=== PATIENT | female | born 1990 | race Caucasian/White ===

== ENCOUNTER → 2017-02-05 | Outpatient (CLI) | payer BC ==
--- NOTE | 2017-02-05 16:13 | CR ---
EXAMINATION: Right ankle HISTORY: Fracture COMPARISON: 01/04/2017 TECHNIQUE: 3 views FINDINGS/IMPRESSION: There is a small early well-corticated ossific density along the inferior aspec t of the distal fibular consistent with previous avulsion fracture. There is minimal residual overly ing soft tissue swelling. The remaining osseous structures and joint spaces appear preserved.
== END ==
LOC: MW.CHORTHO 07:49
PROVIDERS: ATTEND Physician Assistant
DX: S82.831A Other fracture of upper and lower end of right fibula, initial encounter for closed fracture (principal)
CPT/HCPCS: 73610-26-RT; 73610-RT

== ENCOUNTER 2019-09-07 06:32 | Day surgery (SDC) | payer BC ==
--- NOTE | 2019-09-07 07:11 | PCM.PREANE ---
Preanesthetic Assessment - Anesthesia/Transfusion/Family Hx Anesthesia History: Prior Anesthesia Reaction Family History of Anesthesia Reaction: No Transfusion History: No Prior Transfusion(s) Intubation History: Unknown - Review of Systems General: No Symptoms Pulmonary: No Symptoms Cardiovascular: No Symptoms Gastrointestinal: No Symptoms Neurological: No Symptoms Other: Reports: None - Physical Assessment Vital Signs: Last Vital Signs Temp 36.4 C 09/07/19 06:50 Pulse 70 09/07/19 06:50 Resp 14 09/07/19 06:50 BP 118/70 09/07/19 06:50 Pulse Ox 99 09/07/19 06:50 Height: 5 ft 6.5 in Weight: 55.338 kg ASA Class: 2 Mental Status: Alert & Oriented x3 Airway Class: Mallampati = 1 Dentition: Reports: Normal Dentition Thyro-Mental Finger Breadths: 3 Mouth Opening Finger Breadths: 3 ROM/Head Extension: Full Lungs: Clear to Auscultation, Normal Respiratory Effort Cardiovascular: Regular Rate, Regular Rhythm - Lab Values: Laboratory Last Values WBC 3.93 K/uL (4.0-11.0) L 09/07/19 06:55 RBC 3.89 M/uL (4.30-5.90) L 09/07/19 06:55 Hgb 12.7 g/dL (12.0-16.0) 09/07/19 06:55 Hct 36.2 % (36.0-46.0) 09/07/19 06:55 MCV 93.1 fL (80.0-98.0) 09/07/19 06:55 MCH 32.6 pg (27.0-32.0) H 09/07/19 06:55 MCHC 35.1 g/dL (31.0-37.0) 09/07/19 06:55 RDW Std Deviation 41.7 fl (28.0-62.0) 09/07/19 06:55 RDW Coeff of Roderick 12 % (11.0-15.0) 09/07/19 06:55 Plt Count 221 K/uL (150-400) 09/07/19 06:55 MPV 10.20 fL (7.40-12.00) 09/07/19 06:55 Neut % (Auto) 47.9 % (48.0-80.0) L 09/07/19 06:55 Lymph % (Auto) 43.5 % (16.0-40.0) H 09/07/19 06:55 Mckean % (Auto) 6.6 % (0.0-15.0) 09/07/19 06:55 Eos % (Auto) 1.5 % (0.0-7.0) 09/07/19 06:55 Baso % (Auto) 0.5 % (0.0-1.5) 09/07/19 06:55 Neut # (Auto) 1.9 K/uL (1.4-5.7) 09/07/19 06:55 Lymph # (Auto) 1.7 K/uL (0.6-2.4) 09/07/19 06:55 Mckean # (Auto) 0.3 K/uL (0.0-0.8) 09/07/19 06:55 Eos # (Auto) 0.1 K/uL (0.0-0.7) 09/07/19 06:55 Baso # (Auto) 0.0 K/uL (0.0-0.1) 09/07/19 06:55 Nucleated RBC % 0.0 /100WBC 09/07/19 06:55 Nucleated RBCs # 0 K/uL 09/07/19 06:55 - Allergies Allergies/Adverse Reactions: Allergies Allergy/AdvReac Type Severity Reaction Status Date / Time oxycodone HCl Allergy Anaphylactic Verified 09/02/19 15:54 [From OxyContin] Shock - Blood Blood Available: No - Anesthesia Plan Pre-Op Medication Ordered: None - Acknowledgements Anesthesia Type Planned: General Anesthesia Pt an Appropriate Candidate for the Planned Anesthesia: Yes Alternatives and Risks of Anesthesia Discussed w Pt/Guardian: Yes Pt/Guardian Understands and Agrees with Anesthesia Plan: Yes PreAnesthesia 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: , Other (See Below) (ovarian cyst) Musculoskeletal History: Reports: Fracture Other Musculoskeletal History: hx of bilateral fx arms and ankle Psychiatric History: Reports: Anxiety - Past Surgical History Head Surgeries/Procedures: Reports: None GI Surgical History: Reports: Appendectomy, Cholecystectomy, Hernia, Inguinal Female Surgical History: Reports: Breast Implant, LEEP Musculoskeletal Surgical History: Reports: Other (See Below) Other Musculoskeletal Surgeries/Procedures:: tendon repair left middle finger - SUBSTANCE USE Smoking Status *Q: Never Smoker Recreational Drug Use History: No - HOME MEDS Home Medications: Home Meds busPIRone HCl [Buspirone HCl] 15 mg PO BID 09/02/19 [History]
[2019-09-07] MEDS ORDERED: Scopolamine 1.5 MG Transdermal Patch TRDERM PRN (07:12)
[2019-09-07] MEDS ORDERED: Propofol 200 MG/20 ML SDV ONE (07:15)
[2019-09-07] MEDS ORDERED: Ondansetron 4 MG/2 ML SDV ONE (07:16)
[2019-09-07] MEDS ORDERED: Midazolam 1 MG/ML 2 ML SDV ONE (07:16)
[2019-09-07] MEDS ORDERED: Rocuronium 100 MG/10 ML Syringe ONE (07:16)
[2019-09-07] MEDS ORDERED: Dexamethasone 4 MG/ML 5 ML MDV ONE (07:16)
[2019-09-07] MEDS ORDERED: fentaNYL 100 MCG/2 ML SDV ONE (07:16)
[2019-09-07] MEDS ORDERED: Ketorolac 30 MG/ML SDV ONE (07:21)
[2019-09-07] MEDS ORDERED: ceFAZolin 1 GM Vial ONE (07:52)
[2019-09-07] MEDS ORDERED: Sodium Chloride 0.9% 20 ML ONE (07:52)
[2019-09-07] MEDS ORDERED: Bupivacaine 0.5% 30 ML SDV ONE (08:09)
[2019-09-07] MEDS ORDERED: Glycopyrrolate 0.2 MG/ML SDV ONE (08:33)
[2019-09-07] MEDS ORDERED: Neostigmine Methylsulfate 1 MG/ML 5 ML Syringe ONE (08:33)
[2019-09-07] MEDS ORDERED: ePHEDrine 50 MG/ML SDV ONE (08:46)
[2019-09-07] MEDS ORDERED: Fluorescein 5 ML Vial ONE (09:02)
[2019-09-07] MEDS ORDERED: Furosemide 40 MG/4 ML VIAL ONE (09:04)
[2019-09-07] MEDS ORDERED: EPINEPHrine 1:10,000 1 MG/10 ML Syringe IVPUSH PRN (09:33)
[2019-09-07] MEDS ORDERED: Naloxone 0.4 MG/ML Syringe IVPUSH PRN (09:33)
[2019-09-07] MEDS ORDERED: 50% Dextrose in Water 50 ML Syringe IVPUSH PRN (09:33)
[2019-09-07] MEDS ORDERED: Atropine 0.1 MG/ML 10 ML Syringe IVPUSH PRN ×2 (09:33)
[2019-09-07] MEDS ORDERED: Albuterol 0.083% 2.5 MG/3 ML Neb Soln NEB PRN (09:33)
[2019-09-07] MEDS ORDERED: diphenhydrAMINE 50 MG/ML SDV ONE (09:36)
[2019-09-07] MEDS ORDERED: Lidocaine 1% 20 ML MDV ONE (09:43)
[2019-09-07] MEDS ORDERED: Ondansetron 4 MG/2 ML SDV IVPUSH PRN (10:06)
[2019-09-07] MEDS ORDERED: Promethazine 25 MG/ML SDV IM PRN (10:06)
[2019-09-07] MEDS ORDERED: Ketorolac 30 MG/ML SDV IVPUSH ONE (10:06)
[2019-09-07] MEDS ORDERED: Morphine 4 MG/ML Syringe IVPUSH PRN (10:06)
[2019-09-07] MEDS ORDERED: Ketorolac 30 MG/ML SDV IVPUSH PRN (10:06)
[2019-09-07] MEDS ORDERED: Acetaminophen/oxyCODONE 325-5 MG Tab PO PRN ×2 (10:06)
--- NOTE | 2019-09-07 10:16 | PCM.OPNOTE ---
- General Post-Op/Procedure Note Date of Surgery/Procedure: 09/07/19 Operative Procedure(s): Anterior and Posterior Colporraphy. Single incision midurethral sling. Perineorraphy Findings: Grade 2 Cystocoele Grade 1 Rectocoele Grade 1 Uterovaginal prolapse Pre Op Diagnosis: Cystoecoele. Rectoceole. Stress urinary incontinence Post-Op Diagnosis: Same Anesthesia Technique: General ET Tube Primary Surgeon: Benjamin Sebastian Secondary Surgeon: Rayne Cohen Anesthesia Provider: Reinier Harrison Pathology: vaginal mucosa Fluid Replacement, Intraop: 1,100 Output, Urine Amount: 350 EBL in mLs: 50 Complications: None Condition: Good
[2019-09-07] MEDS: fentaNYL 100 MCG/2 ML SDV IVPUSH PRN ×3 (10:22→10:41)
[2019-09-07] MEDS ORDERED: diphenhydrAMINE 50 MG/ML SDV IVPUSH ONE (10:45)
--- NOTE | 2019-09-07 11:02 | PCM.POSTAN ---
POST ANESTHESIA ASSESSMENT - MENTAL STATUS Mental Status: Alert, Oriented - VITAL SIGNS Vital Signs: Last Vital Signs Temp 36.5 C 09/07/19 09:53 Pulse 83 09/07/19 10:53 Resp 12 09/07/19 10:53 BP 112/59 L 09/07/19 10:53 Pulse Ox 99 09/07/19 10:53 - RESPIRATORY Respiratory Status: Respiratory Rate WNL, Airway Patent, O2 Saturation Stable - CARDIOVASCULAR CV Status: Pulse Rate WNL, Blood Pressure Stable - GASTROINTESTINAL GI Status: No Symptoms - PAIN Pain Score: 4 - POST OP HYDRATION Hydration Status: Adequate & Stable - OBSERVATIONS Free Text/Narrative:: no anesthesia problems
[2019-09-07] MEDS ORDERED: Acetaminophen 500 MG Tab PO ONE (11:30)
[2019-09-07] MEDS ORDERED: fentaNYL 100 MCG/2 ML SDV IVPUSH ONE (11:32)
[2019-09-07] MEDS ORDERED: Acetaminophen/HYDROcodone 325-5 MG Tab PO PRN (13:14)
[2019-09-07 16:54] VITALS: BP 97/54; PULSE 80
--- NOTE | 2019-09-08 02:30 | OR ---
SURGEON: QUENTIN INGRAM DATE OF PROCEDURE: 09/07/2019 PRIMARY SURGEON: Quentin Ingram. SECONDARY SURGEON: Rayne Cohen M.D. ANESTHESIA: General. PREOPERATIVE DIAGNOSES: 1. Grade 2 cystocele. 2. Grade 1 rectocele. 3. Stress urinary incontinence. POSTOPERATIVE DIAGNOSES: 1. Grade 2 cystocele. 2. Grade 1 rectocele. 3. Stress urinary incontinence. OPERATIONS: 1. Anterior colporrhaphy. 2. Posterior colporrhaphy. 3. Perineorrhaphy. 4. Single-incision midurethral sling. OPERATIVE FINDINGS: Grade 2 cystocele, grade 2 rectocele, and grade 1 uterine prolapse. SPECIMEN: Trimmed vaginal mucosa from the anterior and posterior wall. ESTIMATED BLOOD LOSS: 50. INTRAVENOUS FLUID: 1100. URINE OUTPUT: 3500. COMPLICATION: None. INDICATIONS: Of note, this is a 29-year-old, who had a history of stress urinary incontinence since, she said, from her teenage years but became worse with the delivery of her kids. At that point, she declined any form of conservative management and has tried the Kegels, which was unsuccessful, so she wanted to go ahead with an anterior-posterior repair and also a sling procedure. She understood the risk of a sling to include urgency and mesh erosion, and she also understood the risk of the repair of dyspareunia, and the patient understood the risks, benefits, and alternatives and decided to proceed. PROCEDURE NOTE: The patient was taken to the operating room and placed in dorsal lithotomy position with Moise stirrups. She was prepared and draped in the usual sterile fashion. A Carlin catheter was placed into the bladder and was drained. Examination under anesthesia revealed the following findings. A weighted speculum was placed in the vagina, and the cystocele was exposed. A dilute solution of lidocaine 0.25% and normal saline was infiltrated into the anterior vaginal mucosa. An incision was made in the vaginal mucosa at the vaginal vault above the cervix. It was about a 5 cm incision a little below the vesicoureteral angle Metzenbaum scissors was then used to dissect the mucosa off the rectocele and the vaginal mucosa in the midline. The muscularis was from the mucosa and was then pushed back with traction all the way lateral fornix. The bladder was dissected along the lateral edges with a combination of sharp and blunt dissection, exposing the vesicovaginal space. Then a series of 2-0 mattress stitch was then placed sequentially along the lateral folds of the vesicovaginal space and brought together at the top of the bladder while simultaneously bringing the lateral vaginal tissues together. The excess vaginal mucosa was trimmed. The vagina was then closed with a running locked 0 Vicryl suture. After the anterior repair, the midurethral sling procedure was then commenced. For this, the midurethral point was identified, and a 1.5 cm incision was made on the anterior vaginal mucosa after infiltration of 1% lidocaine. The vaginal mucosa was then all the way towards about a 45- to 30-degree angle all the way to the lateral fornices close to the pubic rami on both sides. The single-incision device was placed in the tunnel that was created on the right side with a 45- degree angle to miranda towards the obturator internus muscle, and it was confirmed. The mesh was confirmed to be in the right position. Again, the left side was done, and through the same incision that was made, it was advanced laterally to approach the rami and miranda through the obturator internus muscle. The mesh was noted to be sitting in the midureteral region. The incision was then closed with an interlocking layer. Attention was then paid to the rectocele repair. Dilute lidocaine was infiltrated in the posterior vaginal mucosa midline and into the perineal body. An inverted triangle was cut in the perineum. The posterior vagina was then opened with a Lucretia and midline up to the apex of the rectocele. The cut edges were then splayed laterally with a series of Allis, and vaginal mucosa was then dissected laterally with both sharp and blunt dissection to expose the perirectal fascia. The perirectal fascia was then reapproximated with 2-0 Vicryl to draw the lateral folds together and tuck the rectocele back. . The excess vaginal mucosa was trimmed. The posterior vaginal wall was closed with a running locked 0 Vicryl to the hymenal ring. The superficial perineal muscles were closed with running unlocked 0 Vicryl, and the perineal skin was closed with running subcuticular 2-0 Vicryl. The patient tolerated the procedure well. All instrument counts were correct x2. The vagina was packed with the packing gauze. Cystoscopy was done after the procedure and confirmed an intact bladder. The patient would go home after a voiding trial and will follow up in the clinic in 2 weeks and 6 weeks. KELLY SMALLS /[id number] MTDD
== END 2019-09-07 17:30 | disposition home or self-care (01) ==
LOC: MW.SDS 06:32 → MW.MS 10:06 → MW.SDS 17:30
PROVIDERS: ATTEND Obstetrics & Gynecology
DX: N81.2 Incomplete uterovaginal prolapse (principal); N81.6 Rectocele; N39.3 Stress incontinence (female) (male); N76.1 Subacute and chronic vaginitis; F41.9 Anxiety disorder, unspecified; Z88.5 Allergy status to narcotic agent
CPT/HCPCS: 36415; 57260; 57288; 84703; 85025; 86850; 86900; 86901; 88302; A9270; C1771; J0690; J1100; J1200; J1885; J2001; J2250; J2405; J2704; J3010; J3490; 00942; J1940